=== PATIENT | female | born 1945 | race Caucasian/White ===

== ENCOUNTER 2016-10-20 13:26 | Inpatient (IN) | payer OTHER ==
[~2016-10-20] VITALS: Ht 160 cm; Wt 78.5 kg
[~2016-10-20 13:26] MED LIST: ARAVA20 MG PO; COR6 PO; COREG12.5 MG PO; ECO81 PO; GLU500 PO; LEVOTHYROXIN0.125 M2 PO; MAGNESIUM OXID400 MG PO; METOPROLOL SUC100 M2 PO; NEXIUM40 MG PO; NOR10 PO; SIMVASTATIN40 M1 PO; TEMAZEPAM30 MG PO; ZES20 PO; ZESTRIL20 MG PO; ZESTRIL40 MG PO
[2016-10-20 17:46] LABS: PLATELET COUNT 233 x10^3mcL (130-400)
[2016-10-20 17:53] LABS: CALCIUM 8.9 mg/dL (8.5-10.1); CARBON DIOXIDE 24.3 mmol/L (21-32); CHLORIDE SERUM 107 mmol/L (98-107); CREATININE SERUM 0.9 mg/dL (0.6-1.0); GLUCOSE SERUM 102 mg/dL (74-106); POTASSIUM SERUM 3.5 mmol/L (3.5-5.1); SODIUM SERUM 143 mmol/L (136-145)
[2016-10-20 17:57] LABS: ALBUMIN 3.6 g/dL (3.4-5.0); ALKALINE PHOSPHATASE 75 U/L (46-116); ALT/SGPT 17 U/L (14-59); AMYLASE 41 U/L (25-115); AST/SGOT 15 U/L (15-37); BILIRUBIN TOTAL 0.3 mg/dL (0.20-1.00); LIPASE 133 IU/L (73-393); TOTAL PROTEIN, SERUM 6.8 g/dL (6.4-8.2)
[2016-10-20 21:16] LABS: CHOLESTEROL/HDL RATIO 2.6; MAGNESIUM 1.3 mg/dL (1.8-2.4); PHOSPHOROUS 3.5 mg/dL (2.5-4.9)
[2016-10-20 21:17] LABS: T3 TOTAL 1.11 ng/mL
[2016-10-20 21:28] LABS: FREE T4 1.48 ng/dL (0.76-1.46)
[2016-10-20 21:29] LABS: FREE THYROXINE INDEX 4.2 ug/dL (1.4-4.5)
[2016-10-20 22:15] VITALS: BP 176/71
[2016-10-20] MEDS ORDERED: TEMAZEPAM30 MG PO (23:03)
[2016-10-20] MEDS ORDERED: ARAVA20 MG PO (23:03)
[2016-10-21 00:20] VITALS: BP 147/63
[2016-10-21 01:43] LABS: microscopic required? YES; urine erythrocyte NEGATIVE (NEGATIVE)
[2016-10-21 06:37] VITALS: BP 142/68
[2016-10-21 06:46] LABS: BASOPHIL % 0.5 % (0-2); PLATELET COUNT 230 x10^3mcL (130-400); RED CELL DISTRIBUTION WIDTH 13.6 % (11.5-14.5)
[2016-10-21 06:53] LABS: CALCIUM 8.3 mg/dL (8.5-10.1); CARBON DIOXIDE 25.6 mmol/L (21-32); CHLORIDE SERUM 106 mmol/L (98-107); CREATININE SERUM 0.9 mg/dL (0.6-1.0); GLUCOSE SERUM 114 mg/dL (74-106); MAGNESIUM 1.9 mg/dL (1.8-2.4); POTASSIUM SERUM 3.4 mmol/L (3.5-5.1); SODIUM SERUM 142 mmol/L (136-145)
[2016-10-21 06:54] LABS: ALBUMIN 3.2 g/dL (3.4-5.0)
[2016-10-21 09:20] VITALS: BP 119/82
[2016-10-21 12:40] VITALS: BP 133/59
[2016-10-21 17:29] VITALS: BP 127/72
[2016-10-21 21:09] VITALS: Ht 160 cm; Wt 78.5 kg
[2016-10-21 22:09] VITALS: BP 182/81
[2016-10-22 06:22] VITALS: BP 130/70
[2016-10-22 06:24] LABS: CALCIUM 8.1 mg/dL (8.5-10.1); CARBON DIOXIDE 21.9 mmol/L (21-32); CHLORIDE SERUM 111 mmol/L (98-107); CREATININE SERUM 0.8 mg/dL (0.6-1.0); GLUCOSE SERUM 123 mg/dL (74-106); MAGNESIUM 1.8 mg/dL (1.8-2.4); PHOSPHOROUS 3.7 mg/dL (2.5-4.9); POTASSIUM SERUM 3.2 mmol/L (3.5-5.1); SODIUM SERUM 147 mmol/L (136-145)
[2016-10-22 07:19] LABS: BASOPHIL % 0.5 % (0-2); PLATELET COUNT 216 x10^3mcL (130-400); RED CELL DISTRIBUTION WIDTH 14.5 % (11.5-14.5)
[2016-10-22 09:50] VITALS: BP 145/75
[2016-10-22 14:12] VITALS: BP 143/71
[2016-10-22 17:58] VITALS: BP 140/78
[2016-10-22 21:48] VITALS: BP 110/48
[2016-10-23 06:07] VITALS: BP 134/70
[2016-10-23 06:19] LABS: BASOPHIL % 0.7 % (0-2); PLATELET COUNT 204 x10^3mcL (130-400); RED CELL DISTRIBUTION WIDTH 14.3 % (11.5-14.5)
[2016-10-23 06:35] LABS: CALCIUM 8.7 mg/dL (8.5-10.1); CARBON DIOXIDE 22.3 mmol/L (21-32); CHLORIDE SERUM 109 mmol/L (98-107); GLUCOSE SERUM 119 mg/dL (74-106); MAGNESIUM 1.8 mg/dL (1.8-2.4); PHOSPHOROUS 4.4 mg/dL (2.5-4.9); POTASSIUM SERUM 3.5 mmol/L (3.5-5.1); SODIUM SERUM 145 mmol/L (136-145)
[2016-10-23 08:30] VITALS: BP 150/77
[2016-10-23] MEDS ORDERED: LEVOFLOXACIN250 MG PO (09:29)
[2016-10-23] MEDS ORDERED: LAC PO (09:29)
[2016-10-23] MEDS ORDERED: CARAFATE1 GM PO (09:30)
[2016-10-23] MEDS ORDERED: PROTONIX20 MG PO (09:30)
[2016-10-23 11:02] VITALS: BP 150/77
== END 2016-10-23 12:05 | disposition home or self-care (01) | DRG 392 ==
LOC: ED 13:26 → MU 19:33 → DU 19:33 → MU 19:33 → DU 20:42 → MU 10-22 20:07
PROVIDERS: Emergency Medicine; Family Medicine; Internal Medicine Gastroenterology; ADMIT Family Medicine
PROC: 0DBE8ZX Excision of Large Intestine, Via Natural or Artificial Opening Endoscopic, Diagnostic (ICD-10-PCS; 2016-10-22)
PROC: 0DBB8ZX Excision of Ileum, Via Natural or Artificial Opening Endoscopic, Diagnostic (ICD-10-PCS; principal; 2016-10-22 07:30)
DX: K57.32 Diverticulitis of large intestine without perforation or abscess without bleeding (principal); N39.0 Urinary tract infection, site not specified; E87.0 Hyperosmolality and hypernatremia; K58.9 Irritable bowel syndrome, unspecified; K63.5 Polyp of colon; K66.0 Peritoneal adhesions (postprocedural) (postinfection); I16.0 Hypertensive urgency; E83.42 Hypomagnesemia; E11.9 Type 2 diabetes mellitus without complications; E78.5 Hyperlipidemia, unspecified; K44.9 Diaphragmatic hernia without obstruction or gangrene; K21.9 Gastro-esophageal reflux disease without esophagitis; M79.7 Fibromyalgia; M06.9 Rheumatoid arthritis, unspecified; E03.8 Other specified hypothyroidism; Z68.30 Body mass index [BMI] 30.0-30.9, adult; Z79.84 Long term (current) use of oral hypoglycemic drugs; Z86.010 Personal history of colon polyps; Z90.2 Acquired absence of lung [part of]; Z85.118 Personal history of other malignant neoplasm of bronchus and lung; Z87.891 Personal history of nicotine dependence
CPT/HCPCS: 45380; 80307; 82962; 83880; 84439; J0360; J1200; J1610; J1940; J1956; J2250; J2270; J2310; J2405; J2765; J3010; J3475; J3490; J7030; Q0092; Q9966; Q9967

== ENCOUNTER 2017-01-17 13:28 | Inpatient (IN) | payer OTHER ==
[~2017-01-17] VITALS: Ht 160 cm; Wt 79.2 kg
[~2017-01-17 13:28] MED LIST changes: +CARAFATE1 GM PO; +LAC PO; +LEVOFLOXACIN250 MG PO; +PROTONIX20 MG PO
[2017-01-17 14:28] LABS: BASOPHIL % 0.4 % (0-2); PLATELET COUNT 171 x10^3mcL (130-400)
[2017-01-17 14:34] LABS: RED CELL DISTRIBUTION WIDTH 15.1 % (11.5-14.5)
[2017-01-17 15:11] LABS: ALKALINE PHOSPHATASE 97 U/L (46-116); ALT/SGPT 23 U/L (14-59); AST/SGOT 24 U/L (15-37); BILIRUBIN TOTAL 0.5 mg/dL (0.20-1.00); CALCIUM 8.3 mg/dL (8.5-10.1); CARBON DIOXIDE 23.8 mmol/L (21-32); CHLORIDE SERUM 101 mmol/L (98-107); GLUCOSE SERUM 127 mg/dL (74-106); SODIUM SERUM 140 mmol/L (136-145); T4(THYROXINE) 9.8 ug/dL (4.7-13.3); TOTAL PROTEIN, SERUM 7.3 g/dL (6.4-8.2)
[2017-01-17 15:12] LABS: ALBUMIN 3.2 g/dL (3.4-5.0)
[2017-01-17 15:14] LABS: POTASSIUM SERUM 2.9 mmol/L (3.5-5.1)
[2017-01-17] MEDS ORDERED: ZESTRIL20 MG PO (15:21)
[2017-01-17] MEDS ORDERED: NEXIUM40 MG PO (15:21)
[2017-01-17] MEDS ORDERED: FORTAMET500 M1 PO (15:22)
[2017-01-17] MEDS ORDERED: ARAVA20 MG PO (15:22)
[2017-01-17 16:20] LABS: T3 TOTAL 0.46 ng/mL
[2017-01-17 16:21] LABS: CHOLESTEROL/HDL RATIO 2.7; MAGNESIUM 1.3 mg/dL (1.8-2.4); PHOSPHOROUS 2.4 mg/dL (2.5-4.9)
[2017-01-17 16:29] LABS: FREE T4 1.2 ng/dL (0.76-1.46); T4(THYROXINE) 9.8 ug/dL (4.7-13.3)
[2017-01-17 17:42] VITALS: BP 131/62
[2017-01-17 20:06] VITALS: BP 107/56
[2017-01-18 06:01] VITALS: BP 110/59
[2017-01-18 06:24] LABS: CALCIUM 7.3 mg/dL (8.5-10.1); CARBON DIOXIDE 21.6 mmol/L (21-32); CHLORIDE SERUM 109 mmol/L (98-107); CREATININE SERUM 1.8 mg/dL (0.6-1.0); GLUCOSE SERUM 109 mg/dL (74-106); MAGNESIUM 1.9 mg/dL (1.8-2.4); POTASSIUM SERUM 3.3 mmol/L (3.5-5.1); SODIUM SERUM 142 mmol/L (136-145)
[2017-01-18 07:01] LABS: BASOPHIL % 0.3 % (0-2)
[2017-01-18 07:02] LABS: PLATELET COUNT 122 x10^3mcL (130-400); RED CELL DISTRIBUTION WIDTH 14.9 % (11.5-14.5)
[2017-01-18 09:49] VITALS: BP 111/54
[2017-01-18 11:51] LABS: microscopic required? YES; urine erythrocyte NEGATIVE (NEGATIVE)
[2017-01-18 12:07] LABS: AMPHETAMINE QUAL UR NONE DETECTED (NEG <=1000)
[2017-01-18 13:51] VITALS: BP 114/62
[2017-01-18 16:37] VITALS: BP 130/66
[2017-01-18 21:34] VITALS: BP 147/77
[2017-01-19 05:58] VITALS: BP 122/56
[2017-01-19 06:06] LABS: BASOPHIL % 0.1 % (0-2); PLATELET COUNT 139 x10^3mcL (130-400)
[2017-01-19 06:59] LABS: CALCIUM 7.4 mg/dL (8.5-10.1); CARBON DIOXIDE 20.5 mmol/L (21-32); CHLORIDE SERUM 110 mmol/L (98-107); CREATININE SERUM 1.2 mg/dL (0.6-1.0); GLUCOSE SERUM 100 mg/dL (74-106); MAGNESIUM 1.6 mg/dL (1.8-2.4); PHOSPHOROUS 3.3 mg/dL (2.5-4.9); POTASSIUM SERUM 3.6 mmol/L (3.5-5.1); SODIUM SERUM 142 mmol/L (136-145)
[2017-01-19 09:21] VITALS: BP 128/67
[2017-01-19 13:25] VITALS: BP 136/66
[2017-01-19 16:45] VITALS: BP 141/69
[2017-01-19 21:21] VITALS: BP 163/75
[2017-01-20 05:47] VITALS: BP 169/76
[2017-01-20 06:36] LABS: CARBON DIOXIDE 20.5 mmol/L (21-32); CHLORIDE SERUM 109 mmol/L (98-107); CREATININE SERUM 1.1 mg/dL (0.6-1.0); GLUCOSE SERUM 105 mg/dL (74-106); MAGNESIUM 1.5 mg/dL (1.8-2.4); PHOSPHOROUS 3.5 mg/dL (2.5-4.9); POTASSIUM SERUM 3.4 mmol/L (3.5-5.1); SODIUM SERUM 141 mmol/L (136-145)
[2017-01-20 06:41] LABS: BASOPHIL % 0.6 % (0-2); PLATELET COUNT 147 x10^3mcL (130-400)
[2017-01-20 06:43] LABS: RED CELL DISTRIBUTION WIDTH 14.7 % (11.5-14.5)
[2017-01-20 07:50] VITALS: BP 166/84
[2017-01-20 09:11] VITALS: BP 156/77
[2017-01-20] MEDS ORDERED: NOR10 PO (11:59)
[2017-01-20 14:03] VITALS: BP 147/71
[2017-01-20 18:18] VITALS: BP 168/84
[2017-01-20 22:01] VITALS: BP 166/73
[2017-01-21 06:14] LABS: CARBON DIOXIDE 22.9 mmol/L (21-32); CHLORIDE SERUM 113 mmol/L (98-107); CREATININE SERUM 1.1 mg/dL (0.6-1.0); GLUCOSE SERUM 110 mg/dL (74-106); MAGNESIUM 1.8 mg/dL (1.8-2.4); PHOSPHOROUS 3.7 mg/dL (2.5-4.9); POTASSIUM SERUM 3.9 mmol/L (3.5-5.1); SODIUM SERUM 147 mmol/L (136-145)
[2017-01-21 06:19] VITALS: BP 154/73
[2017-01-21 06:30] LABS: BASOPHIL % 0.5 % (0-2); PLATELET COUNT 190 x10^3mcL (130-400)
[2017-01-21 06:38] LABS: RED CELL DISTRIBUTION WIDTH 14.6 % (11.5-14.5)
[2017-01-21 07:35] VITALS: BP 159/77
[2017-01-21 09:33] VITALS: BP 160/77
[2017-01-21] MEDS ORDERED: LEVAQUIN500 M1 PO (13:46)
[2017-01-21] MEDS ORDERED: BD LACTINEX1.4 MG PO (13:47)
[2017-01-21] MEDS ORDERED: CLINDAMYCIN HC300 MG PO (13:47)
[2017-01-21 14:10] VITALS: BP 149/74
[2017-01-21] MEDS ORDERED: NORCO1 TA2 PO (15:12)
[2017-01-21] MEDS ORDERED: COLACE100 MG PO (15:13)
[2017-01-21 15:40] VITALS: BP 149/74
== END 2017-01-21 17:27 | disposition home or self-care (01) | DRG 871 ==
LOC: ED 13:28 → DU 15:22
PROVIDERS: Emergency Medicine; Family Medicine; ADMIT Family Medicine
DX: A41.9 Sepsis, unspecified organism (principal); N17.0 Acute kidney failure with tubular necrosis; L03.115 Cellulitis of right lower limb; N18.4 Chronic kidney disease, stage 4 (severe); D68.69 Other thrombophilia; E44.0 Moderate protein-calorie malnutrition; E11.65 Type 2 diabetes mellitus with hyperglycemia; I12.9 Hypertensive chronic kidney disease with stage 1 through stage 4 chronic kidney disease, or unspecified chronic kidney disease; L73.9 Follicular disorder, unspecified; E87.6 Hypokalemia; M79.7 Fibromyalgia; E03.9 Hypothyroidism, unspecified; M06.9 Rheumatoid arthritis, unspecified; K21.9 Gastro-esophageal reflux disease without esophagitis; K44.9 Diaphragmatic hernia without obstruction or gangrene; G47.00 Insomnia, unspecified; E83.39 Other disorders of phosphorus metabolism; Z68.30 Body mass index [BMI] 30.0-30.9, adult; Z87.891 Personal history of nicotine dependence; Z85.110 Personal history of malignant carcinoid tumor of bronchus and lung
CPT/HCPCS: 82962; 83880; 84439; 94150; 97110-GP; 97116-GP; 97530-GP; G0480; J1644; J1956; J2270; J3475; J3480; J3490; J7030; J7040; Q0092

== ENCOUNTER 2017-02-06 11:47 | Observation (INO) | payer OTHER ==
[~2017-02-06] VITALS: Ht 160 cm; Wt 78.9 kg
[~2017-02-06 11:47] MED LIST changes: +BD LACTINEX1.4 MG PO; +CLINDAMYCIN HC300 MG PO; +COLACE100 MG PO; +FORTAMET500 M1 PO; +LEVAQUIN500 M1 PO; +NORCO1 TA2 PO
[2017-02-06 16:36] LABS: BASOPHIL % 0.5 % (0-2); PLATELET COUNT 219 x10^3mcL (130-400)
[2017-02-06 16:37] LABS: RED CELL DISTRIBUTION WIDTH 15.9 % (11.5-14.5)
[2017-02-06 16:59] LABS: CALCIUM 8.9 mg/dL (8.5-10.1); CARBON DIOXIDE 23.8 mmol/L (21-32); CHLORIDE SERUM 107 mmol/L (98-107); CREATININE SERUM 1.1 mg/dL (0.6-1.0); GLUCOSE SERUM 93 mg/dL (74-106); POTASSIUM SERUM 3.5 mmol/L (3.5-5.1); SODIUM SERUM 144 mmol/L (136-145)
[2017-02-06 17:04] LABS: ALBUMIN 3.7 g/dL (3.4-5.0); ALKALINE PHOSPHATASE 86 U/L (46-116); ALT/SGPT 13 U/L (14-59); AST/SGOT 14 U/L (15-37); BILIRUBIN TOTAL 0.3 mg/dL (0.20-1.00); TOTAL PROTEIN, SERUM 7.5 g/dL (6.4-8.2)
[2017-02-06 19:55] VITALS: BP 181/91
[2017-02-06 20:02] LABS: CHOLESTEROL/HDL RATIO 2.9; MAGNESIUM 1.5 mg/dL (1.8-2.4); PHOSPHOROUS 2.8 mg/dL (2.5-4.9)
[2017-02-06 20:09] LABS: T3 TOTAL 1.13 ng/mL
[2017-02-06 20:29] LABS: FREE T4 1.12 ng/dL (0.76-1.46); FREE THYROXINE INDEX 3.7 ug/dL (1.4-4.5); T4(THYROXINE) 11.9 ug/dL (4.7-13.3)
[2017-02-06 21:06] VITALS: BP 156/75
[2017-02-07 03:21] VITALS: BP 156/75
[2017-02-07 05:42] VITALS: BP 140/67
[2017-02-07 06:31] LABS: BASOPHIL % 0.7 % (0-2); PLATELET COUNT 202 x10^3mcL (130-400)
[2017-02-07 06:51] LABS: RED CELL DISTRIBUTION WIDTH 15.7 % (11.5-14.5)
[2017-02-07 07:13] LABS: CALCIUM 8.4 mg/dL (8.5-10.1); CARBON DIOXIDE 26.7 mmol/L (21-32); CHLORIDE SERUM 107 mmol/L (98-107); CREATININE SERUM 1.2 mg/dL (0.6-1.0); GLUCOSE SERUM 119 mg/dL (74-106); MAGNESIUM 2.2 mg/dL (1.8-2.4); POTASSIUM SERUM 3.8 mmol/L (3.5-5.1); SODIUM SERUM 143 mmol/L (136-145)
[2017-02-07 09:19] VITALS: BP 144/76
[2017-02-07] MEDS ORDERED: CLEOCIN HCL300 MG PO ×2 (10:08→11:46)
[2017-02-07] MEDS ORDERED: LEVOFLOXACIN500 M1 PO (11:47)
[2017-02-07] MEDS ORDERED: LAC PO (11:47)
[2017-02-07 12:51] VITALS: BP 144/76
== END 2017-02-07 14:29 | disposition home or self-care (01) | DRG 606 ==
LOC: ED 11:47 → DU 18:40
PROVIDERS: Emergency Medicine; ADMIT Family Medicine
PROC: 0H9KXZX Drainage of Right Lower Leg Skin, External Approach, Diagnostic (ICD-10-PCS; principal; 2017-02-07)
DX: S80.821A Blister (nonthermal), right lower leg, initial encounter (principal); N17.0 Acute kidney failure with tubular necrosis; L03.115 Cellulitis of right lower limb; E11.65 Type 2 diabetes mellitus with hyperglycemia; E11.51 Type 2 diabetes mellitus with diabetic peripheral angiopathy without gangrene; D64.9 Anemia, unspecified; E83.40 Disorders of magnesium metabolism, unspecified; E03.9 Hypothyroidism, unspecified; E78.5 Hyperlipidemia, unspecified; K21.9 Gastro-esophageal reflux disease without esophagitis; K44.9 Diaphragmatic hernia without obstruction or gangrene; I10 Essential (primary) hypertension; J45.909 Unspecified asthma, uncomplicated; M79.7 Fibromyalgia; G47.00 Insomnia, unspecified; M06.9 Rheumatoid arthritis, unspecified; E66.9 Obesity, unspecified; Z68.30 Body mass index [BMI] 30.0-30.9, adult; Z87.891 Personal history of nicotine dependence; Z79.84 Long term (current) use of oral hypoglycemic drugs; X58.XXXA Exposure to other specified factors, initial encounter; Y92.009 Unspecified place in unspecified non-institutional (private) residence as the place of occurrence of the external cause
CPT/HCPCS: 82962; 83880; 84439; 94150; C9113; G0378; J1644; J1956; J2270; J2405; J3475; J3490; J7030; J7050; Q0092

== ENCOUNTER 2017-03-12 08:52 | Emergency (ER) | payer OTHER ==
[~2017-03-12] VITALS: Ht 160 cm; Wt 78.0 kg
[~2017-03-12 08:52] MED LIST changes: +CLEOCIN HCL300 MG PO; +LEVOFLOXACIN500 M1 PO
[2017-03-12 10:51] VITALS: BP 158/8
== END 2017-03-12 10:51 | disposition home or self-care (01) ==
LOC: ED 08:52
DX: R21 Rash and other nonspecific skin eruption (principal)

== ENCOUNTER 2017-04-06 13:51 | Emergency (ER) | payer OTHER ==
[2017-04-06 14:26] VITALS: BP 167/91
== END 2017-04-06 17:12 | disposition home or self-care (01) ==
LOC: ED 13:51
DX: M06.9 Rheumatoid arthritis, unspecified (principal); E11.9 Type 2 diabetes mellitus without complications; I10 Essential (primary) hypertension; Z85.118 Personal history of other malignant neoplasm of bronchus and lung; Z88.0 Allergy status to penicillin; Z88.2 Allergy status to sulfonamides; Z88.8 Allergy status to other drugs, medicaments and biological substances